=== PATIENT | male | born 1995 | race Caucasian/White ===

== ENCOUNTER 2017-11-18 21:15 | Emergency (ER) | payer OTHER ==
[~2017-11-18] VITALS: Ht 177.8 cm; Wt 75.0 kg
[~2017-11-18 21:15] MED LIST: NAPROSYN375 MG PO
[2017-11-19] MEDS ORDERED: VALIUM5 MG PO (01:54)
[2017-11-19] MEDS ORDERED: NAPROSYN500 MG PO (01:54)
[2017-11-19 02:33] VITALS: BP 120/77
== END 2017-11-19 02:33 | disposition home or self-care (01) ==
LOC: EME 21:15
DX: S16.1XXA Strain of muscle, fascia and tendon at neck level, initial encounter (principal); S29.012A Strain of muscle and tendon of back wall of thorax, initial encounter; V49.40XA Driver injured in collision with unspecified motor vehicles in traffic accident, initial encounter; Y92.410 Unspecified street and highway as the place of occurrence of the external cause; F17.200 Nicotine dependence, unspecified, uncomplicated
CPT/HCPCS: 72040; 72070; 99281; 99284